=== PATIENT | female | born 1990 | race African-American/Black ===

== ENCOUNTER 2019-03-18 09:53 | Emergency (ER) | payer MEDICAID, OTHER ==
[~2019-03-18] VITALS: Ht 154.9 cm; Wt 54.4 kg
[~2019-03-18 09:53] MED LIST: ALBU18
[2019-03-18] MEDS ORDERED: cefTRIAXone SOD 1,000 MG VL IM ONE (10:30)
[2019-03-18] MEDS ORDERED: IPRATROPIUM BROM 0.5 MG/2.5ML INH SOL NEB ONE (10:30)
[2019-03-18] MEDS ORDERED: ALBUTEROL SULF 2.5 MG/0.5ML(0.5%) NEB SOLN NEB ONE (10:30)
[2019-03-18] MEDS ORDERED: methylPREDNISolone SOD SUCC 125 MG/2 ML VL IM ONE (10:30)
[2019-03-18 11:12] VITALS: BP 114/72
== END 2019-03-18 11:18 | disposition home or self-care (01) ==
LOC: EDBD 09:53 → ER 09:53
DX: J20.9 Acute bronchitis, unspecified (principal); J02.9 Acute pharyngitis, unspecified; F17.210 Nicotine dependence, cigarettes, uncomplicated
CPT/HCPCS: 94640; 96372; 99283; J0696; J2930; J7611; J7644